=== PATIENT | male | born 1985 | race Asian ===

== ENCOUNTER 2020-12-19 11:48 | Emergency (ER) | payer OTHER ==
[~2020-12-19] VITALS: Ht 182.9 cm; Wt 99.8 kg
[2020-12-19 11:58] VITALS: TEMP 97.8
[2020-12-19 12:50] VITALS: BP 144/82
== END 2020-12-19 12:51 | disposition home or self-care (01) ==
LOC: ED 11:48
PROC: 09C47ZZ Extirpation of Matter from Left External Auditory Canal, Via Natural or Artificial Opening (ICD-10-PCS; principal; 2020-12-19)
DX: T16.2XXA Foreign body in left ear, initial encounter (principal); X58.XXXA Exposure to other specified factors, initial encounter; Y92.89 Other specified places as the place of occurrence of the external cause
CPT/HCPCS: 99282